=== PATIENT | female | born 2000 | race Caucasian/White ===

== ENCOUNTER 2021-03-21 21:05 | Emergency (ER) | payer MEDICARE, MEDICAID ==
[~2021-03-21] VITALS: Ht 170.2 cm; Wt 89.9 kg
[2021-03-21 21:40] LABS: ABSOLUTE BASOPHILS 0.2 thou/uL (0.0-0.2); ABSOLUTE EOSINOPHILS 0.1 thou/uL (0.0-0.7); ABSOLUTE LYMPHOCYTES 4.9 thou/uL (0.8-5.3); ABSOLUTE MONOCYTES 0.8 thou/uL (0.0-1.2); ABSOLUTE NEUTROPHILS 8.7 thou/uL (1.6-8.1); BASOPHILS 1.1 %; EOSINOPHILS 0.9 %; HEMATOCRIT 37.9 % (37.0-47.0); HEMOGLOBIN 12.3 gm/dL (12.0-15.0); LYMPHOCYTES 33.4 %; MCH 27.4 pg (26.0-34.0); MCHC 32.4 g/dL (28.0-37.0); MCV 84.3 fL (80.0-100.0); MONOCYTES 5.6 %; MPV 7.9 fl. (7.2-11.1); NUCLEATED RBCS 0 /100WBC; PLATELET COUNT* 408 thou/uL (150-400); RBC 4.49 mil/uL (4.20-5.00); RDW-CV 15.4 % (10.5-14.5); WBC 14.7 thou/uL (4.0-11.0)
[2021-03-21 21:49] LABS: CREATININE 0.7 mg/dL (0.6-1.3); POTASSIUM 3.6 mmol/L (3.5-5.1)
[2021-03-21 21:54] LABS: ACETAMINOPHEN < 2 ug/mL (10-30); ALBUMIN 3.3 g/dL (3.4-5.0); ALCOHOL < 10 mg/dL (<10); SALICYLATE < 2.8 mg/dL (2.8-20.0); TOTAL BILIRUBIN 0.1 mg/dL (<0.1-1.0); TOTAL PROTEIN 8.1 g/dL (6.4-8.2)
[2021-03-21 22:24] LABS: URINE BLOOD 3+ (Negative); URINE COLOR YELLOW; URINE GLUCOSE-RANDOM NEGATIVE (Negative); URINE KETONES TRACE (Negative); URINE LEUKOCYTES-REFLEX NEGATIVE (Negative); URINE NITRITE-REFLEX NEGATIVE (Negative); URINE PROTEIN NEGATIVE (Negative); URINE SPECIFIC GRAVITY >= 1.030 (1.005-1.030); URINE UROBILINOGEN 0.2 E.U./dl (0.2-1.0)
[2021-03-21 22:26] LABS: ICTOTEST (BILI CONFIRMATORY) Negative (Negative); URINE BILIRUBIN 1+ (Negative); URINE CLARITY HAZY
[2021-03-21 22:33] LABS: AMP/METHAMP Negative (Negative); BARBITURATES Negative (Negative); BENZODIAZEPINES Negative (Negative); COCAINE Negative (Negative); METHADONE Negative (Negative); OPIATES Negative (Negative); PCP Negative (Negative); THC Negative (Negative)
[2021-03-21 22:40] LABS: BACTERIA-REFLEX None Seen /HPF (None Seen); CASTS None Seen /LPF (None Seen); CRYSTALS None Seen /LPF (None Seen); SQUAMOUS 0-3 Few /LPF (0-3); URINE RBC 0-2 Rare /HPF (0-2); URINE WBC-REFLEX None Seen /HPF (0-5)
[2021-03-21] MEDS ORDERED: LATUDA40 MG PO (23:18)
[2021-03-21] MEDS ORDERED: LATUDA80 MG PO (23:19)
[2021-03-21] MEDS ORDERED: LEVO-T75 MCG PO (23:20)
[2021-03-21] MEDS ORDERED: ZYRTEC10 M4 PO (23:21)
[2021-03-21] MEDS ORDERED: OMEPRAZOLE 20 M20 M1 PO (23:25)
[2021-03-21] MEDS ORDERED: OXYBUTYNIN 5 MG5 M2 PO (23:27)
[2021-03-21] MEDS ORDERED: CLONIDINE (23:29)
[2021-03-21] MEDS ORDERED: METFORMIN (23:29)
[2021-03-21] MEDS ORDERED: LARIN (23:30)
[2021-03-21] MEDS ORDERED: [UNRECOGNIZED DRUG - OTHER] (23:30)
[2021-03-21] MEDS ORDERED: ZYPREXA (23:31)
[2021-03-21] MEDS ORDERED: LEVOCARNITINE (23:33)
[2021-03-22 01:59] VITALS: BP 128/94
== END 2021-03-22 01:59 | disposition home or self-care (01) ==
LOC: M.ERS 21:05
PROVIDERS: Emergency Medicine
DX: R45.4 Irritability and anger (principal); Z20.822 Contact with and (suspected) exposure to COVID-19; Z88.1 Allergy status to other antibiotic agents; Z88.2 Allergy status to sulfonamides; Z88.8 Allergy status to other drugs, medicaments and biological substances